=== PATIENT | male | born 1985 | race American Indian/Alaskan Native ===

== ENCOUNTER 2020-01-03 08:26 | Emergency (ER) | payer SELFPAY ==
[2020-01-03 08:35] VITALS: BP 121/62
--- NOTE | 2020-01-03 09:12 | Emergency Department Report ---
ED ENT HPI - General Chief complaint: Earache Stated complaint: LT EAR PAIN Time Seen by Provider: 01/03/20 08:47 Source: patient Mode of arrival: Ambulatory Limitations: No Limitations - History of Present Illness Initial comments: This is a 34-year-old male brought by mother nontoxic, well nourished in appearance, no acute signs of distress presents to the ED with c/o of left earache. Patient denies any ear drainage. Patient denies any trauma to the area. Patient denies any mastoid tenderness. Agrees to tragus tenderness. Patient denies hearing decrease or hearing changes. Patient denies any fever, chills, nausea, vomiting, chest pain, short of breath, headache or stiff neck. Patient denies any drug allergies or significant past medical history. MD complaint: ear pain -: days(s) Location: L ear Severity: mild Severity scale (0 -10): 8 Quality: aching Consistency: constant Improves with: none Worsens with: none Associated Symptoms: denies: fever, cough, gum swelling, toothache, pain with swallowing, sore throat, tinnitus, hearing loss, discharge from ear, rhinorrhea - Related Data Previous Rx's Medication Instructions Recorded Last Taken Type Acetaminophen/Codeine [Tylenol 1 tab PO Q6H PRN #15 tab 11/23/18 Unknown Rx /Codeine # 3 tab] Ibuprofen [Motrin] 800 mg PO Q8HR PRN #30 tablet 11/23/18 Unknown Rx Penicillin V Potassium 500 mg PO TID #21 tablet 11/23/18 Unknown Rx Amoxicillin [Amoxicillin TAB] 875 mg PO BID #20 tablet 01/03/20 Unknown Rx Ciprofloxacin HCl/Dexameth 2 drop OTIC BID 7 Days #7.5 ml 01/03/20 Unknown Rx [Ciprodex Otic Suspension] Allergies Allergy/AdvReac Type Severity Reaction Status Date / Time No Known Allergies Allergy Unverified 11/23/18 09:15 ED Dental HPI - General Chief complaint: Earache Stated complaint: LT EAR PAIN Time Seen by Provider: 01/03/20 08:47 Source: patient Mode of arrival: Ambulatory Limitations: No Limitations - Related Data Previous Rx's Medication Instructions Recorded Last Taken Type Acetaminophen/Codeine [Tylenol 1 tab PO Q6H PRN #15 tab 11/23/18 Unknown Rx /Codeine # 3 tab] Ibuprofen [Motrin] 800 mg PO Q8HR PRN #30 tablet 11/23/18 Unknown Rx Penicillin V Potassium 500 mg PO TID #21 tablet 11/23/18 Unknown Rx Amoxicillin [Amoxicillin TAB] 875 mg PO BID #20 tablet 01/03/20 Unknown Rx Ciprofloxacin HCl/Dexameth 2 drop OTIC BID 7 Days #7.5 ml 01/03/20 Unknown Rx [Ciprodex Otic Suspension] Allergies Allergy/AdvReac Type Severity Reaction Status Date / Time No Known Allergies Allergy Unverified 11/23/18 09:15 ED Review of Systems ROS: Stated complaint: LT EAR PAIN Other details as noted in HPI Constitutional: denies: chills, fever Eyes: denies: eye pain, eye discharge, vision change ENT: ear pain. denies: throat pain Respiratory: denies: cough, shortness of breath, wheezing Cardiovascular: denies: chest pain, palpitations Endocrine: no symptoms reported Gastrointestinal: denies: abdominal pain, nausea, diarrhea Genitourinary: denies: urgency, dysuria Musculoskeletal: denies: back pain, joint swelling, arthralgia Skin: denies: rash, lesions Neurological: denies: headache, weakness, paresthesias Psychiatric: denies: anxiety, depression Hematological/Lymphatic: denies: easy bleeding, easy bruising ED Past Medical Hx - Past Medical History Previous Medical History?: No - Surgical History Past Surgical History?: No - Social History Smoking Status: Current Every Day Smoker Substance Use Type: None - Medications Home Medications: Home Medications Medication Instructions Recorded Confirmed Last Taken Type Acetaminophen/Codeine [Tylenol 1 tab PO Q6H PRN #15 tab 11/23/18 Unknown Rx /Codeine # 3 tab] Ibuprofen [Motrin] 800 mg PO Q8HR PRN #30 tablet 11/23/18 Unknown Rx Penicillin V Potassium 500 mg PO TID #21 tablet 11/23/18 Unknown Rx Amoxicillin [Amoxicillin TAB] 875 mg PO BID #20 tablet 01/03/20 Unknown Rx Ciprofloxacin HCl/Dexameth 2 drop OTIC BID 7 Days #7.5 ml 01/03/20 Unknown Rx [Ciprodex Otic Suspension] ED Physical Exam - General Limitations: No Limitations General appearance: alert, in no apparent distress - Head Head exam: Present: atraumatic, normocephalic - Expanded ENT Exam Expanded Ear exam: Present: normal external inspection TM/Canal exam: Erythema: Left TM, Bulging: Left TM - Neck Neck exam: Present: normal inspection, full ROM. Absent: lymphadenopathy - Extremities Exam Extremities exam: Present: normal inspection, full ROM - Back Exam Back exam: Present: normal inspection, full ROM - Neurological Exam Neurological exam: Present: alert, oriented X3, normal gait - Psychiatric Psychiatric exam: Present: normal affect, normal mood - Skin Skin exam: Present: warm, dry, intact, normal color. Absent: rash - Other Other exam information: Positive for tragus tenderness left ear. There is some canal drainage with no perforation noted left ear. ED Course Vital Signs 01/03/20 08:32 Temperature 98.5 F Pulse Rate 54 L Respiratory 16 Rate Blood Pressure 121/62 O2 Sat by Pulse 97 Oximetry - Reevaluation(s) Reevaluation #1: 01/03/20 09:10 Patient is speaking in full sentences with no signs of distress noted. ED Medical Decision Making - Medical Decision Making This is a 34-year-old male that presents with otitis media and externa. Patient is stable and was examined by me. Vital signs are stable. Patient will be discharged with amoxicillin and Ciprodex. Patient was instructed to follow-up with a primary care and ENT doctor in 3-5 days or if symptoms worsen and continue return to emergency room as soon as possible. At time of discharge, the patient does not seem toxic or ill in appearance. No acute signs of distress noted. Patient agrees to discharge treatment plan of care. No further questions noted by the patient. Critical care attestation.: If time is entered above; I have spent that time in minutes in the direct care of this critically ill patient, excluding procedure time. ED Disposition Clinical Impression: Left otitis media Qualifiers: Otitis media type: unspecified Qualified Code(s): H66.92 - Otitis media, unspecified, left ear Left otitis externa Qualifiers: Otitis externa type: unspecified type Chronicity: acute Qualified Code(s): H60.502 - Unspecified acute noninfective otitis externa, left ear Disposition: - TO HOME OR SELFCARE Is pt being admited?: No Does the pt Need Aspirin: No Condition: Stable Instructions: Otitis Externa (ED), Otitis Media (ED) Additional Instructions: Follow-up with a primary care and ENT doctor in 3-5 days or if symptoms worsen and continue return to emergency room as soon as possible. Prescriptions: Amoxicillin [Amoxicillin TAB] 875 mg PO BID #20 tablet Ciprofloxacin HCl/Dexameth [Ciprodex Otic Suspension] 2 drop OTIC BID 7 Days #7.5 ml Referrals: DELANO MATIAS MD [Staff Physician] - 3-5 Days [facility]IMARY [facility]ARE, [Primary Care Provider] - 3-5 Days ASHLI KRISHNAN MD [Staff Physician] - 3-5 Days Forms: Work/School Release Form(ED)
== END 2020-01-03 09:35 | disposition home or self-care (01) ==
LOC: ED 08:26
DX: H66.92 Otitis media, unspecified, left ear (principal); H60.502 Unspecified acute noninfective otitis externa, left ear
CPT/HCPCS: 99282

== ENCOUNTER 2020-01-12 02:06 | Emergency (ER) | payer SELFPAY ==
--- NOTE | 2020-01-12 05:49 | Emergency Department Report ---
ED General Adult HPI - General Chief complaint: Earache Stated complaint: FB/LEFT EAR PAIN Source: patient Mode of arrival: Ambulatory Limitations: No Limitations - History of Present Illness Initial comments: Patient is a 34-year-old -[place] male with no past medical history who presents to the ED with complaint of acute onset persistent left ear pressure and pain for the last 1 week. Patient states that he was initially evaluated in this ED and discharged home on amoxicillin 875 mg to be taken twice a day. Patient states that the pain is persistent and the pressure feels as if something is moving in the left ear. Patient denies headache, dizziness, nausea, vomiting, fever, chills, cough, sore throat, nasal and sinus congestion, traumatic injury to the left ear, chest pain or shortness of breath and change in vision. MD Complaint: left ear pain; pressure -: Sudden, week(s) (1) Location: face (left ear) Radiation: non-radiation Severity scale (0 -10): 3 Quality: dull Consistency: constant Improves with: none Worsens with: none Associated Symptoms: denies other symptoms. denies: confusion, chest pain, cough, diaphoresis, fever/chills, headaches, loss of appetite, malaise, nausea/vomiting, rash, shortness of breath, syncope, weakness, other Treatments Prior to Arrival: none - Related Data Previous Rx's Medication Instructions Recorded Last Taken Type Acetaminophen/Codeine [Tylenol 1 tab PO Q6H PRN #15 tab 11/23/18 Unknown Rx /Codeine # 3 tab] Ibuprofen [Motrin] 800 mg PO Q8HR PRN #30 tablet 11/23/18 Unknown Rx Penicillin V Potassium 500 mg PO TID #21 tablet 11/23/18 Unknown Rx Amoxicillin [Amoxicillin TAB] 875 mg PO BID #20 tablet 01/03/20 Unknown Rx Ciprofloxacin HCl/Dexameth 2 drop OTIC BID 7 Days #7.5 ml 01/03/20 Unknown Rx [Ciprodex Otic Suspension] Carbamide Peroxide 6.5% [Ear Wax 3 drops OT Q4H #1 bottle 01/12/20 Unknown Rx Drops] Allergies Allergy/AdvReac Type Severity Reaction Status Date / Time No Known Allergies Allergy Unverified 11/23/18 09:15 ED Review of Systems ROS: Stated complaint: FB/LEFT EAR PAIN Other details as noted in HPI Constitutional: denies: chills, fever Eyes: denies: eye pain, eye discharge, vision change ENT: ear pain (with pressure on left). denies: throat pain Respiratory: denies: cough, shortness of breath, wheezing Cardiovascular: denies: chest pain, palpitations Endocrine: no symptoms reported Gastrointestinal: denies: abdominal pain, nausea, diarrhea Genitourinary: denies: urgency, dysuria Musculoskeletal: denies: back pain, joint swelling, arthralgia Skin: denies: rash, lesions Neurological: denies: headache, weakness, paresthesias Psychiatric: denies: anxiety, depression Hematological/Lymphatic: denies: easy bleeding, easy bruising ED Past Medical Hx - Past Medical History Previous Medical History?: No - Surgical History Past Surgical History?: No - Social History Smoking Status: Current Every Day Smoker Substance Use Type: None - Medications Home Medications: Home Medications Medication Instructions Recorded Confirmed Last Taken Type Acetaminophen/Codeine [Tylenol 1 tab PO Q6H PRN #15 tab 11/23/18 Unknown Rx /Codeine # 3 tab] Ibuprofen [Motrin] 800 mg PO Q8HR PRN #30 tablet 11/23/18 Unknown Rx Penicillin V Potassium 500 mg PO TID #21 tablet 11/23/18 Unknown Rx Amoxicillin [Amoxicillin TAB] 875 mg PO BID #20 tablet 01/03/20 Unknown Rx Ciprofloxacin HCl/Dexameth 2 drop OTIC BID 7 Days #7.5 ml 01/03/20 Unknown Rx [Ciprodex Otic Suspension] Carbamide Peroxide 6.5% [Ear Wax 3 drops OT Q4H #1 bottle 01/12/20 Unknown Rx Drops] ED Physical Exam - General Limitations: No Limitations General appearance: alert, in no apparent distress - Head Head exam: Present: atraumatic, normocephalic, normal inspection - Eye Eye exam: Present: normal appearance, PERRL, EOMI Pupils: Present: normal accommodation - ENT ENT exam: Present: normal exam, normal orophraynx, mucous membranes moist, other (Complete left ear cerumen impaction) - Neck Neck exam: Present: normal inspection, full ROM. Absent: tenderness - Respiratory Respiratory exam: Present: normal lung sounds bilaterally. Absent: respiratory distress, wheezes, rales, chest wall tenderness, decreased breath sounds - Cardiovascular Cardiovascular Exam: Present: regular rate, normal rhythm, normal heart sounds. Absent: systolic murmur, diastolic murmur, rubs, gallop - GI/Abdominal GI/Abdominal exam: Present: soft, normal bowel sounds. Absent: tenderness, guarding, rebound, hyperactive bowel sounds - Extremities Exam Extremities exam: Present: normal inspection - Back Exam Back exam: Present: normal inspection, full ROM. Absent: tenderness, CVA tenderness (R), CVA tenderness (L), muscle spasm, paraspinal tenderness, vertebral tenderness - Neurological Exam Neurological exam: Present: alert, oriented X3, CN II-XII intact, normal gait, reflexes normal - Psychiatric Psychiatric exam: Present: normal affect, normal mood - Skin Skin exam: Present: warm, dry, intact, normal color. Absent: rash ED Course Vital Signs 01/12/20 02:39 Temperature 98.6 F Pulse Rate 68 Respiratory 18 Rate Blood Pressure 105/74 O2 Sat by Pulse 100 Oximetry ED Medical Decision Making - Medical Decision Making This is a 34-year-old -[place] male with no past medical history who presents to the ED with complaint of acute onset persistent left ear pressure and pain for the last 1 week. Patient states that he was initially evaluated in this ED and discharged home on amoxicillin 875 mg to be taken twice a day. Patient states that the pain is persistent and the pressure feels as if something is moving in the left ear. In the ED, patient is alert and oriented x3 and is not in distress. Patient will discharge home on earwax removal prescription and was advised to follow-up with his primary care physician in 5 to 7 days for reevaluation. Patient was advised return to the ED immediately if symptoms get worse. - Differential Diagnosis Cerumen impaction; Otitis media; Otitis externa Critical care attestation.: If time is entered above; I have spent that time in minutes in the direct care of this critically ill patient, excluding procedure time. ED Disposition Clinical Impression: Impacted cerumen of left ear Disposition: [id number] TO HOME OR SELFCARE Is pt being admited?: No Does the pt Need Aspirin: No Condition: Stable Instructions: Cerumen Impaction (ED) Additional Instructions: Apply the medication to the ear as advised, drink plenty of fluids, follow-up with your primary care physician in 5 to 7 days for reevaluation. Return to the ED immediately if symptoms get worse. Prescriptions: Carbamide Peroxide 6.5% [Ear Wax Drops] 3 drops OT Q4H #1 bottle Referrals: [facility] [Provider Group] - 3-5 Days Time of Disposition: 05:45 Print Language: VENEZUEL[place]
[2020-01-12 07:03] VITALS: BP 110/65
== END 2020-01-12 06:21 | disposition home or self-care (01) ==
LOC: ED 02:06
DX: H61.22 Impacted cerumen, left ear (principal); F17.200 Nicotine dependence, unspecified, uncomplicated
CPT/HCPCS: 99282

== ENCOUNTER 2022-01-03 20:51 | Emergency (ER) | payer SELFPAY ==
[2022-01-03 22:10] VITALS: BP 120/88
== END 2022-01-04 03:00 | disposition left against medical advice (07) ==
LOC: ED 20:51
DX: R11.10 Vomiting, unspecified (principal); R06.02 Shortness of breath; Z53.21 Procedure and treatment not carried out due to patient leaving prior to being seen by health care provider